=== PATIENT | male | born 2000 | race Caucasian/White ===

== ENCOUNTER 2018-12-25 13:08 | Emergency (ER) | payer OTHER ==
[~2018-12-25] VITALS: Ht 172.7 cm; Wt 62.1 kg
[2018-12-25 13:18] VITALS: BP 120/72
--- NOTE | 2018-12-25 13:22 | NUR ---
WAIT AT [email or web address].VSS
--- NOTE | 2018-12-25 13:47 | NUR ---
PT AMBULATED TO BED 07.
--- NOTE | 2018-12-25 14:00 | NUR ---
PT C/O INGROWN TOENAIL RIGHT GREAT TOE SINCE SEPTEMBER. PATIENT STATES THROBBING PAIN OF 8/10 AT THIS TIME; ERYTHEMA AND EDEMA NOTICED ON PT'S RIGHT-SIDED RIGHT GREAT TOE. VSS; PATIENT POSITIONED FOR COMFORT; HOB ELEVATED; BEDRAILS UP X1; BED DOWN. ER MD MADE AWARE OF PT STATUS.
[2018-12-25 14:49] VITALS: BP 130/72
--- NOTE | 2018-12-25 14:49 | NUR ---
Patient discharged with v/s stable. Written and verbal after care instructions given and explained. Patient alert, oriented and verbalized understanding of instructions. Ambulatory with steady gait. All questions addressed prior to discharge. ID band removed. Patient advised to follow up with PMD. Rx of IBUPROFEN, KEFLEX given. Patient educated on indication of medication including possible reaction and side effects. Opportunity to ask questions provided and answered.
== END 2018-12-25 14:49 | disposition home or self-care (01) ==
LOC: MED 13:08
DX: L60.0 Ingrowing nail (principal)
CPT/HCPCS: 99283

== ENCOUNTER 2019-07-29 10:56 | Emergency (ER) | payer OTHER ==
[~2019-07-29] VITALS: Ht 177.8 cm; Wt 68.0 kg
[2019-07-29 10:59] VITALS: BP 143/73
--- NOTE | 2019-07-29 11:14 | NUR ---
PT AMBULATED TO BED WITH C/O OF PRODUCTIVE COUGH AND FEVER FOR 2 WEEKS ,ACCOMPANIED BY SORETHROAT 5/10 PAIN ,FIBRILE, PINK PALPEBRAL CONJUNCTIVAE , ANICTERIC SCLERA , SCE , COARSE BS BLF , FLAT SOFT NABS NONTENDER ABDOMEN. PMHX DENIES NO ALLERGY
--- NOTE | 2019-07-29 11:18 | NUR ---
DR OVERTON AT BEDSIDE EVALUATING PT.
--- NOTE | 2019-07-29 11:27 | NUR ---
PT COMFORTABLE IN BED SIDE RAILS UP X1 AND LOCK.
--- NOTE | 2019-07-29 11:33 | NUR ---
XRAY AT BEDSIDE .
[2019-07-29] MEDS ORDERED: ACETAMINOPHEN EXTRA STRENGTH 500 MG TAB PO ONE (11:35)
[2019-07-29 12:10] VITALS: BP 130/73
--- NOTE | 2019-07-29 12:10 | NUR ---
Patient discharged with v/s stable. Written and verbal after care instructions given and explained regarding cough. Patient alert, oriented and verbalized understanding of instructions. Ambulatory with steady gait. All questions addressed prior to discharge. ID band removed. Patient advised to follow up with PMD. Rx of doxecycline and guafenesin given. Patient educated on indication of medication including possible reaction and side effects. Opportunity to ask questions provided and answered. Excuse from work given.
== END 2019-07-29 12:10 | disposition home or self-care (01) ==
LOC: MED 10:56 → EEVIPCON 10:56 → MED 12:10
DX: J02.9 Acute pharyngitis, unspecified (principal); R91.8 Other nonspecific abnormal finding of lung field
CPT/HCPCS: 71045; 99283; Q0092